=== PATIENT | female | born 1960 | race Caucasian/White ===

== ENCOUNTER 2022-06-10 17:00 | Emergency (ER) | payer BC, SELFPAY ==
--- NOTE | ~2022-06-10 | XR_ITS ---
EXAMINATION: XR FOOT, RIGHT CLINICAL INFORMATION: Pain and swelling COMPARISON: None TECHNIQUE: AP, lateral, and oblique views of the right foot. FINDINGS: Bones are normal anatomic alignment with no acute fracture or dislocation seen. Mild hallux valgus deformity and soft tissue swelling medial to the first MTP joint and lateral to the fifth MTP joint possibly representing mild bursitis. No radiopaque foreign body or soft tissue gas. No periosteal reaction. XR/XR foot RT min 3V IMPRESSION: Mild soft tissue swelling. No acute bony abnormality. No radiopaque foreign body or soft tissue gas.
--- NOTE | ~2022-06-10 | XR_ITS ---
EXAMINATION: XR ANKLE, RIGHT CLINICAL INFORMATION: Status post fall COMPARISON: None TECHNIQUE: AP, lateral, and mortise views of the right ankle. FINDINGS: The bones and soft tissues are normal. No fracture. Alignment is anatomic. Joint spaces are maintained. No joint effusion. XR/XR ankle RT min 3V IMPRESSION: Normal right ankle.
--- NOTE | 2022-06-10 17:13 | ED.LOWEXIN ---
HPI - Extremity Injury (Lower) General Chief Complaint: Extremity Injury, Lower Stated Complaint: foot inj Time Seen by Provider: 06/10/22 19:00 History of Present Illness HPI Narrative: 62yoF presenting to the ED with complaints of right ankle pain/foot pain/swelling that started few hours prior to arrival after she was hiking and her foot went into a hole and she heard a ?pop?.? She denies head injury loss of consciousness or any other injuries complaints or concerns at this time. 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) Injury: Right: ankle and foot Type of Injury: other ( her foot fell into a hole) Place: street/outdoors Severity: moderate Exacerbating factors: weight bearing, movement and palpation Context: fall Associated symptoms: snap/pop sensation Other symptoms: none Related Data Home Medications Medication Instructions Recorded Confirmed zolmitriptan 5 mg tablet 5 mg PO DAILY 06/14/22 Allergies Allergy/AdvReac Type Severity Reaction Status Date / Time casein [CASEIN] Allergy Unknown NAUSEA & Verified 06/14/22 10:28 VOMITING lactose [LACTOSE] Allergy Unknown NAUSEA & Verified 06/14/22 10:28 VOMITING simvastatin [SIMVASTATIN] Allergy Unknown JOINT PAIN Verified 06/14/22 10:28 Review of Systems Review of Systems: Constitutional : No Weight loss, No Fever, No Chills, No Night Sweats, No Fatigue, No Malaise ENT/Mouth : No Hearing loss, No Ear Pain, No Nasal Congestion, No Sinus Pain, No Hoarseness, No sore throat, No Rhinorrhea, No Swallowing Difficulty Eyes: No Eye Pain, No Swelling, No Redness, No Foreign Body, No Discharge, No Vision Changes Cardiovascular : No Chest Pain, No SOB, No Dyspnea on Exertion, No Orthopnea, No Edema, No Palpitations Respiratory : No Cough, No Sputum, No Wheezing, No Smoke Exposure, No Dyspnea Gastrointestinal : No Nausea, No Vomiting, No Diarrhea, No Constipation, No abdominal Pain, No Hematochezia, No Melena Genitourinary : no irregular bleeding, No Dysuria, No Urinary Frequency, No Hematuria, No Urinary Incontinence, No Urgency, No Flank Pain, No Urinary Flow Changes, No Hesitancy Musculoskeletal : + right ankle/foot joint pain, No Myalgias, No Joint Swelling Skin : No Skin Lesions, No rash Neuro : No Weakness, No Numbness, No Paresthesias, No Loss of Consciousness, No Dizziness, No Headache Psych : No Anxiety/Panic, No Depression, No SI/HI/AH/VH, No Social Issues, Heme/Lymph: No Bruising, No Bleeding,No Lymphadenopathy Endocrine : No Polyuria, No Polydipsia, No Temperature Intolerance Yes all other systems are reviewed and are negative [facility] Past Medical History Attestation statement: The following information was validated with the patient. Source: old records reviewed and nursing notes reviewed Physical Exam Vital Signs: Vital Signs: Last Vital Signs Temp 98.4 F 06/10/22 19:29 Pulse 58 06/10/22 19:29 Resp 16 06/10/22 19:29 BP 123/85 06/10/22 19:29 Pulse Ox 100 06/10/22 19:29 O2 Del Method 06/10/22 19:29 BMI result Body Mass Index 24.5 vital signs have been reviewed as normal and appeared to be correct. Blood pressure normal Heart rate normal. Respiration rate normal. Temperature normal. Oxygen saturation normal. Appearance: Alert. Oriented X3. No acute distress. Head: Normal external exam. Normocephalic. Atraumatic. Eyes: PERRLA. EOMI. Conjunctiva and sclera normal. Eyelids normal. ENT: Pharynx normal. Uvula midline. Moist mucous membranes. Neck: Normal inspection. Neck supple. FROM. CVS: Normal heart rate and rhythm. Respiratory: No respiratory distress. Painless inspiration. Skin: Skin warm and dry. Normal skin color. Normal skin turgor. No rashes/lesions/lacerations noted. Extremities: No lower extremity edema. patient mild tenderness palpation to the proximal aspect of the right foot /lateral aspect of the right ankle with mild soft tissue swelling no obvious ligamentous or tendon injury noted. Achilles tendon is intact. Otherwise all other extremities exhibit normal range of motion nontender. Neuro: Oriented X 3. No motor deficit. No sensory deficit. Reflexes normal. Normal steady gait. No focal neuro deficits noted. Vascular: + radial pulses/+ 2 distal pedal pulses/+2 dorsalis pedis b/l. Normal cap refill. No cyanosis noted to upper extremity nails and lower extremity toes nails. Course Course Course Narrative: MALDONADO- 17:20pm - 62yoF presenting to the ED with complaints of right ankle pain/foot pain/swelling that started few hours prior to arrival after she was hiking and her foot went into a hole and she heard a ?pop?. She denies head injury loss of consciousness or any other injuries complaints or concerns at this time. She has a normal steady gait. No obvious ligamentous or tendon injury noted. No obvious deformities although she is tender to the proximal aspect of the foot. No 5th metatarsal tenderness. Achilles tendon is intact Plan: X-ray of right ankle/foot ordered at this time patient will be going to the waiting room to be evaluated in [facility]. Reevaluation(s) Reevaluation #1: FINDINGS: The bones and soft tissues are normal. No fracture. Alignment is anatomic. Joint spaces are maintained. No joint effusion.? XR/XR ankle RT min 3V IMPRESSION: Normal right ankle FINDINGS: Bones are normal anatomic alignment with no acute fracture or dislocation seen. Mild hallux valgus deformity and soft tissue swelling medial to the first MTP joint and lateral to the fifth MTP joint possibly representing mild bursitis. No radiopaque foreign body or soft tissue gas. No periosteal reaction.? XR/XR foot RT min 3V IMPRESSION: Mild soft tissue swelling. No acute bony abnormality. No radiopaque foreign body or soft tissue gas. ? X-rays negative although patient left before giving her results she eloped Time: 17:02 Discharge Plan Discharge Clinical Impression: Foot sprain Patient Disposition: Home, Self-Care Instructions: Foot Sprain (ED) Additional Instructions: Follow up with your primary care provider and an orthopedic provider. Return to the emergency department immediately if your symptoms worsen or if you develop any dizziness, shortness of breath, difficulty breathing, chest pain, blurry vision, loss of vision, nausea, vomiting, abdominal pain, fever, chills, back pain, or any other complaints. Prescriptions: No Action zolmitriptan 5 mg tablet 5 mg PO DAILY Referrals: [facility] [Provider Group] (Call to establish and follow up with an orthopedic provider. ) Dave Park MD [Primary Care Provider] - Stand Alone Forms: Work/School Release Interventions: ED Discharge Assessment Last Done: 06/10/22 19:54 Discharge Date/Time: 06/10/22 19:54 Print Language: Luxembourgish
[2022-06-10 17:14] VITALS: BP 123/69; PULSE 84; RESP 18; TEMP 36.2; O2SAT 100; BMI 24.5
[2022-06-10 19:29] VITALS: BP 123/85; PULSE 58; RESP 16; TEMP 36.9; O2SAT 100
== END 2022-06-10 19:54 | disposition home or self-care (01) ==
PROVIDERS: Emergency Provider Emergency Medicine; PCP Family Medicine
DX: S93.601A Unspecified sprain of right foot, initial encounter (principal); W01.0XXA Fall on same level from slipping, tripping and stumbling without subsequent striking against object, initial encounter; Y93.01 Activity, walking, marching and hiking; Y92.821 Forest as the place of occurrence of the external cause; Y99.9 Unspecified external cause status; Z79.899 Other long term (current) drug therapy
CPT/HCPCS: 73610; 73630; 99283

== ENCOUNTER 2022-06-14 10:18 | Outpatient (REF) | payer BC, SELFPAY ==
--- NOTE | ~2022-06-14 | XR_ITS ---
EXAMINATION: XR FOOT, RIGHT CLINICAL INFORMATION: Right foot pain. COMPARISON: Radiographs right foot and right ankle 06/10/2022 06/10/2022 TECHNIQUE: Right foot is imaged in 3 views. FINDINGS: Normal bony mineralization. No acute or healing fracture, dislocation, destructive process. AP view foot again shows short fine linear mineralization adjacent to distal lateral calcaneus, probably visible on current exam. In the appropriate clinical setting, this could be related to a fine ligamentous pull cortical avulsion. Clinically correlate. Forefoot again shows hallux valgus and degenerative changes first MTP with medial bunion. Mild soft tissue swelling lateral foot at fifth MCP. No soft tissue mineralization. Mild degenerative changes interphalangeal joints. XR/XR foot RT min 3V IMPRESSION: -Fine linear mineralization adjacent to distal lateral calcaneus. In the appropriate clinical setting, this could be related to a fine ligamentous pull cortical avulsion. Clinically correlate. -Hallux valgus, and medial bunion and degenerative changes first MTP similar to prior study. -Otherwise, no acute or healing fracture, dislocation, or destructive process.
== END 2022-06-14 10:19 | disposition home or self-care (01) ==
LOC: HO.HOSX 10:18
PROVIDERS: PCP Family Medicine; Visit Provider Physician Assistant
DX: S93.601A Unspecified sprain of right foot, initial encounter (principal)
CPT/HCPCS: 73630

== ENCOUNTER 2023-12-16 11:59 | Outpatient (REF) | payer BC, SELFPAY ==
--- NOTE | ~2023-12-16 | XR_ITS ---
EXAMINATION: XR PELVIS CLINICAL INFORMATION: Pain COMPARISON: Hip and pelvis radiographs 05/09/2006 TECHNIQUE: AP view of the pelvis. FINDINGS: Moderate osteoarthritic of the right hip with loss of joint space and collar osteophytes and mild osteoarthritic the left hip with small osteophytes progressed from prior. Levoconvex curvature of the lumbar spine. Sacroiliac joint spaces are maintained. Large colonic stool burden. Soft tissues are unremarkable. XR/XR pelvis 1-2V IMPRESSION: 1. Moderate degenerative changes of the right hip and mild degenerative changes the left hip progressed from prior.
== END 2023-12-16 12:00 | disposition home or self-care (01) ==
LOC: HO.HOSX 11:59
PROVIDERS: Visit Provider Orthopaedic Surgery
DX: M25.559 Pain in unspecified hip (principal)
CPT/HCPCS: 72170

== ENCOUNTER 2023-12-16 13:51 | Outpatient (AMB) | payer BC, SELFPAY ==
[2023-12-16 14:03] VITALS: BMI 24.0
--- NOTE | 2023-12-16 14:03 | MHC.OFFVIS ---
Vital Signs 12/16/23 14:03 Height 5 ft 4 in Weight 140 lb BMI 24.0 Intake Visit Reasons: Newprob-RT hip pain-discuss possible replacement Intake Note: Gloria is a 63 yr old female, who presents today to discuss possible RT JOSE ARMANDO. Allergies casein [CASEIN] Allergy (Unknown, Verified 12/16/23 14:05) NAUSEA & VOMITING lactose [LACTOSE] Allergy (Unknown, Verified 12/16/23 14:05) NAUSEA & VOMITING simvastatin [SIMVASTATIN] Allergy (Unknown, Verified 12/16/23 14:05) JOINT PAIN HPI HPI Newprob-RT hip pain-discuss possible replacement: Details: This is a 63 yo F with long standing and worsening right hip pain. She describes difficulty with daily activities such as getting into and out of a car, ascending and descending stairs and ambulating. She localizes the pain to her right groin. She feels the quality of her life is diminished. Her pain localizes to the groin. She has difficulty sleeping. Nothing has helped. She limps when she walks and she cannot walk for more than 5 minutes without pain. Physical Exam Vital Signs: BMI result Body Mass Index 24.0 Const General: cooperative, healthy appearing, no acute distress, well developed and alert HEENT Head: Yes normal to inspection, Yes normocephalic and Yes atraumatic Mouth: moist mucous membranes Eyes General: appearance normal, both eyes and all related structures EOM: EOMs intact bilaterally Chest Other: no audible wheezing. Resp Other: No audible wheezing Effort & Inspection: normal respiratory effort Cardio Other: Radial pulse palpable with no rythmic abnormalities Back/Spine/Pelvis Cervical Spine: normal cervical lordosis Skin General skin exam: no rashes or lesions noted Neuro General: no focal motor deficits Extrem Other: + gait antalgia right hip with 90 deg flexion. Minimal rotation + impingement Psych Appearance: grossly normal and well kempt Mental Status: mental status grossly normal Speech and movement: Normal speech and movement present Affect: normal affect Attitude: cooperative Results Reviewed Results Reviewed: I personally reviewed relevant radiographs. Severe right hip OA Assessment & Plan Assessment & Plan (1) Osteoarthritis of right hip: Code(s): M16.11 - Unilateral primary osteoarthritis, right hip Category: Medical Plan: This is a 63 F with severe OA of the right hip. She is debilitated and suffering and I recommend right hip arthroplasty. I discussed this with her. She is healthy without any major medical problems. We discussed the diagnosis and treatment options. I discussed the risks benefits and alternatives including but not limited to the risk of pain, infection, stiffness, fracture and dislocation, need for further surgery as well as potential medical complications such as blood clots, pulmonary embolism and cardiac complications. SHe expressed understanding and we will proceed forward accordingly. Orders: Orders XR pelvis 1-2V 12/16/23 M25.559 - Pain in unspecified hip Coding Level of Care Code Est Pt Level 4 (61008) Diagnoses Osteoarthritis of right hip M16.11
== END 2023-12-16 15:20 | disposition home or self-care (01) ==
PROVIDERS: PCP Family Medicine; Visit Provider Orthopaedic Surgery
DX: M16.11 Unilateral primary osteoarthritis, right hip (principal)
CPT/HCPCS: 99214

== ENCOUNTER → 2024-03-10 12:59 | Outpatient (BNVA) | payer BC, SELFPAY | PROVIDERS: PCP Family Medicine | DX: Z01.818 Encounter for other preprocedural examination (principal) ==

== ENCOUNTER 2025-03-26 07:08 | Emergency (ER) | payer BC, SELFPAY ==
--- OUTSIDE RECORDS SUMMARY | 2024-04-01 10:00 | XMS_ITS ---
Author Organization [employer] Address [address] [facility] [address] [place] [address] Care Team Providers Care Ore Puncher Name Role Phone ALANIS WHITE, CHEPE Primary Care Provider Lizette Pelaez Unavailable [phone] REASON FOR VISIT Annual DRIP PUMPER Physical Encounters Encounter Location Date Provider Diagnosis [facility] [employer] [address] [facility] [address] [place] [address] 04/01/2024 Lizette Arroyo Plan Of Treatment Next Appt Details Provider Name:Lizette smith, 07/02/2025 10:20:00 AM, [address] [facility], [address], [place], [address], Progress Notes * LORIE GALINDOOB: (65 yo F)Acc No.[id number]:04/01/2024 PROGRESS NOTES Patient: HEMAL GALINDO Appointment Provider: Theresa Arroyo M.D. :1960 A ge:64 Y S ex:Female Date:04/01/2024 Address:[address] [place], [place] [id number] Pcp:CHEPE THAPA MD Subjective: * Chief Complaints: * 1 . Annual DRIP PUMPER Physical. * Medical History: Objective: * Vitals: Assessment: Plan: * Treatment: * Images: Billing Information: * Visit Code: * Procedure Codes: * Electronic signature of Hilario Arroyo MD on 03/26/2025 at 08:11 AM EDT Sign off status: Pending * Appointment Provider: Theresa Arroyo M.D. Date: Generated for Lonnie diamond/Jake/Chetan on: 08:11 AM EDT
--- NOTE | ~2025-03-26 | XR_ITS ---
CLINICAL HISTORY: lower back pain 3 views lumbar spine Comparison: None provided Findings: There is scoliotic curvature. No acute fractures or dislocation. Chronic appearing fractures of T11 and T12 vertebrae. There is multiple level degenerative facet change. IMPRESSION: No acute findings. This document has been electronically signed by: Amrik Delarosa MD on 03/26/2025 08:32:21
[2025-03-26 07:13] VITALS: BP 131/74; PULSE 93; RESP 14; TEMP 36.4; O2SAT 100; BMI 24.9
--- NOTE | 2025-03-26 07:53 | PC.NURSE ---
Pt ambulated to bathroom with even/steady gait
[2025-03-26 07:59] LABS: Appearance Urine Clear; Glucose Urine UA Negative (Negative); PH 7.5 (5.0-9.0); Specific Gravity - Urine <= 1.005 (1.005-1.025); UMIC TRIGGER UACC YES
--- NOTE | 2025-03-26 08:02 | ED_ITS ---
HPI - Back Pain/Injury General Chief Complaint: Back Pain/Injury Stated Complaint: L Side Low Back Pain Time Seen by Provider: 03/26/25 07:58 Source: patient and old records reviewed Mode of arrival: ambulatory Limitations: no limitations History of Present Illness ED Provider: MADDI MOTA Narrative: 65 yo female with PMH of HLD and prior back spasm she generally tries meloxicam and flexeril but it is not helping. She washed her truck on Saturday and noted some discomfort after. She was able to work this week though felt pain at times in L low back. She notes this AM it was much worse. She has no urinary symptoms, no abdominal pain, no numbness/weakness, no saddle anesthesia or b/b incontinence. She is not on blood thinners. MD elicited complaint: back pain and back injury Pertinent past history: prior back pain Onset (ago): day(s) (6) Timing: intermittent Severity: moderate Similar Symptoms Previously: Yes Quality: spasming and throbbing Location: lumbar spine Radiation: none Exacerbating factors: movement Relieving factors: immobilization Context: unknown Associated symptoms: denies other symptoms Treatments prior to arrival: NSAIDS and other medications Work related injury: Yes Related Data Home Medications ?Medication ?Instructions ?Recorded ?Confirmed cyclobenzaprine 10 mg tablet 10 mg PO BEDTIME 12/16/23 03/10/24 zolmitriptan 2.5 mg tablet (Zomig) 2.5 mg PO Q2-4H PRN 03/10/24 03/10/24 Previous Rx's ?Medication ?Instructions ?Recorded walker #1 ea 05/11/24 diazepam 2 mg tablet (Valium) 2 mg PO TID PRN muscle s pasm #14 03/26/25 tabs Allergies Allergy/AdvReac Type Severity Reaction Status Date / Time casein (CASEIN) Allergy Unknown NAUSEA & Verified 03/26/25 07:15 VOMITING lactose (LACTOSE) Allergy Unknown NAUSEA & Verified 03/26/25 07:15 VOMITING simvastatin (SIMVASTATIN) Allergy Unknown JOINT PAIN Verified 03/26/25 07:15 walnut AdvReac Intermediate Swelling Verified 03/26/25 07:15 Review of Systems Review of Systems: Constitutional : No Fever, No Chills, Gastrointestinal : No Nausea, No Vomiting, No Diarrhea, No abdominal Pain Genitourinary : No Dysuria, No Urinary Frequency, No Hematuria, No Urinary Incontinence, Musculoskeletal : positive back pain Skin : No Skin Lesions, No rash Neuro : No Weakness, No Numbness, No Paresthesias, no loss of bowel or bladder incontinence, no saddle anesthesia Yes all other systems are reviewed and are negative [facility] Past Medical History Attestation statement: The following information was validated with the patient. Source: old records reviewed Medical History Hyperlipidemia Social History Social History (Updated 03/26/25 @ 09:13 by Flaca Olivia DO) Patient Tobacco Use Status: Tobacco use Unknown Physical Exam Vital Signs: Vital Signs: Last Vital Signs Temp 97.6 F 03/26/25 08:39 Pulse 93 03/26/25 08:39 Resp 14 03/26/25 08:39 BP 131/74 03/26/25 08:39 Pulse Ox 100 03/26/25 08:39 O2 Del Method Room Air 03/26/25 08:39 BMI result Body Mass Index 24.9 Appearance: Alert. Oriented X3. No acute distress. Eyes: Pupils equal, round and reactive to light. ENT: Pharynx normal. Neck: Normal inspection. Neck supple. CVS: . Pulses normal. Respiratory: No respiratory distress. Breath sounds normal. Abdomen: Soft and nontender. Back: L lumbar above SI joint and paraspinal area ttp reproduces pain Skin: Skin warm and dry. Normal skin color. Extremities: No lower extremity edema. Neuro: Oriented X 3. No motor deficit. No sensory deficit. L 5/5 intact, SILT intact, 2+ DTR in patella and achilles Medications Administered Discontinued Medications Generic Name Dose Route Start Last Admin Trade Name Jagruti PRN Reason Stop Dose Admin Ketorolac Tromethamine 30 mg 03/26/25 08:23 03/26/25 08:36 Ketorolac Tromethamine 30 Mg/Ml Vial IM 03/26/25 08:24 30 mg ONCE ONE Administration Medical Decision Making Medical Decision Making [facility] Narrative: 65 yo female with PMH of HLD and prior back spasm now here with c/o recurrent symptoms but nontender abdomen, normal urine, NV intact, no red flags or signs of cauda equina at this time will start on valium and motrin/tylenol with instructions to return if not better or follow up with PCP Differential Diagnosis Differential Diagnoses: The differential diagnosis associated with the presentation includes back spasm, strain, pain reproduceable and no hematuria doubt renal colic Admission/Observation Consideration of admission/observation: Escalation of care including admission/observation considered no cauda equina symptoms, no other systemic symptoms, urine reassuring, start on pain control and DC Lab Data MDM Lab Attestation statement: I reviewed the patient's lab results. Labs: Lab Results 03/26/25 Range/Units 07:52 Urine Color Yellow Urine Appearance Clear Urine pH 7.5 (5.0-9.0) Ur Specific [place] <= 1.005 (1.005-1.025) Urine Protein Negative (Neg-Trace) mg/dL Urine Glucose (UA) Negative (Negative) mg/dL Urine Ketones Negative (Negative) mg/dL Urine Blood Negative (Negative) Urine Nitrite Negative (Negative) Ur Leukocyte Esterase Small (1+) H (Negative) Urine RBC 0-2 (0-2) /HPF Urine WBC 0-5 (0-5) /HPF Ur Squamous Epith Cells 3-5 (0-2) /HPF Urine Bacteria None Seen (None Seen) Hyaline Casts 0-2 (0-2) /LPF Independent Interpretation I performed an independent interpretation of an: Plain X-Ray (normal ) Radiology Impression Discussion of test interpretation with radiology: I have reviewed the radiologist's reading. External Record Review External record reviewed: Outpatient record Prescription Management I considered prescription management with: Pain Medication and Other Discharge Plan Discharge Clinical Impression: Strain of lumbar region Qualifiers: Encounter type: initial encounter Qualified Code(s): S39.012A - Strain of muscle, fascia and tendon of lower back, initial encounter Patient Disposition: Home, Self-Care Instructions: Muscle Strain (ED), Low Back Strain (ED) Additional Instructions: no motrin until 2pm take medications for relaxation of muscle as needed avoid heavy lifting of 10lbs for 2 weeks and twisting movements return for weakness, loss of control of bowel or bladder, numbness in genital area or any other concerns use heat or ice as needed follow up with your doctor if not better by saturday Findings: There is scoliotic curvature. No acute fractures or dislocation. Chronic appearing fractures of T11 and T12 vertebrae. There is multiple level degenerative facet change. IMPRESSION: No acute findings. This document has been electronically signed by: Amrik Delarosa MD on 03/26/2025 08:32:21 Prescriptions: New diazepam [Valium] 2 mg tablet 2 mg PO TID PRN (Reason: muscle spasm) Qty: 14 0RF Rx Instructions: if 2mg is not working in 45 minutes may add additional 2mg for total dose of 4mg No Action (DME) walker Misc See Rx Instructions .ROUTE .MEDSUPPLY Qty: 1 0RF Rx Instructions: Folding front wheeled walker cyclobenzaprine 10 mg tablet 10 mg PO BEDTIME zolmitriptan [Zomig] 2.5 mg tablet 2.5 mg PO Q2-4H PRN Rx Instructions: do not exceed 4 doses per 24 hrs Interventions: ED Discharge Assessment Last Done: 03/26/25 08:39 Discharge Date/Time: 03/26/25 08:40 Print Language: Martiniquais
[2025-03-26 08:08] LABS: UACC Culture Trigger YES
--- OUTSIDE RECORDS SUMMARY | 2025-03-26 08:12 | XMS_ITS | Patient Health Record ---
Author Organization [facility] Address [address] [address] Care Team Providers Care Business Segment Manager Name Role Phone CHEPE THAPA MD Primary Care Provider Lizette Pelaez Unavailable [phone] Allergies Allergen (clinical drug ingredient) Drug/Non Drug Allergy documented on EMR Reaction Allergy Type Onset Date Status simvastatin ZOCOR Myalgia Drug Allergy Activ e Substance with 8-hfdxapr-2-methylgluta ryl-coenzyme A reductase inhibitor mechanism of action (substance) Statins Unknown Drug Allergy Active Results Component Value Reference Range Notes Urinalysis Reviewed date:06/30/2024 10:38:52 AM Interpretation: Performing Lab: Notes/Report: PH 6.0 PROTEIN Neg GLUCOSE Neg BLOOD Neg Reason For Referral No Information Medications Medication SIG (Take, Route, Frequency, Duration) Notes Start Date End Date Status Protonix 40 MG 1 tablet Orally Once a day; Duration: 30 day(s) PRN Active Zomig 2.5 MG 1 tablet Orally Once a day; Duration: 1 day(s) Active Estradiol Vaginal Cream 0.01% 1 Gram Vaginally Twice a week; Duration: 90 days 01/09/2022 Active Estradiol Vaginal Cream 0.01% 1 Gram to the affected area Vaginal/Vulva Twice a week; Duration: 90 Days 06/30/2024 Active CoQ-10 100 MG as directed Orally Active Turmeric-Rere 150-25 MG as directed Orally Active Magnesium 200 MG 1 tablet with a meal Orally Once a day; Duration: 30 days Unknown Dose Active Probiotic - as directed Orally Active Immunizations Vaccine Route Administration Date Status Comme nts Influenza, live, intranasal Intramuscular 05/28/2011 [place] Social History Tobacco Use: Social History Observation Description Date Details (start date - stop date) Former Smoker NA - NA AUDIT-C (Standard) Question Answer Notes Did you have a drink contain ing alcohol in the past year? Yes How often did you have six o r more drinks on one occasion in the past year? Never (0 point) How many drinks did you have on a typical day when you were drinking in the past year? 1 or 2 drinks (0 point) How often did you have a dri nk containing alcohol in the past year? 2 to 4 times a month (2 points) Points 2 Interpretation Negative Tobacco Control (Standard) Question Answer Notes Tobacco use: Former smoker How long has it been since you last smoked? 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) Unspecified infective arthritis, site unspecified (711.90) Active confirmed Problem Uterine prolapse without vaginal wall prolapse (85377333) Uterine prolapse without mention of vaginal wall prolapse (618.1) Active confirmed Problem Postmenopausal atrophic vaginitis (55134251) Postmenopausal atrophic vaginitis (N95.2) Active confirmed Problem Family history of malignant neoplasm of breast (368973878) Family history of malignant neoplasm of breast (Z80.3) Active confirmed Problem Migraine (disorder) (71115823) Migraine, unspecified without mention of intractable migraine without mention of status migrainosus (346.90) Active confirmed Diag Problem Menopausal symptom (86204915) Symptomatic menopausal or female climacteric states (627.2) Active confirmed Major Problem Postmenopausal atrophic vaginitis (68966800) Postmenopausal atrophic vaginitis (627.3) Active confirmed Diag Problem Joint pain (99879616) Pain in joint, site unspecified (719.40) Active confirmed Diag Problem Muscle pain (32622924) Unspecified myalgia and myositis (729.1) Active confirmed Diag Vital Signs Temperature 97.2 degrees Fahrenheit 06/30/2024 Blood pressure diastolic 78 mm Hg 06/30/2024 Height 62.5 in 06/30/2024 Blood pressure systolic 118 mm Hg 06/30/2024 Weight 140 lbs 06/30/2024 BMI 25.2 kg/m2 06/30/2024 Encounters Encounter Location Date Provider Diagnosis [facility] [address] [place] [address] 06/30/2024 Lizette Arroyo Encounter for gynecological examination (general) (routine) without abnormal findings Z01.419 ; Encounter for screening mammogram for malignant neoplasm of breast Z12.31 and Postmenopausal atrophic vaginitis N95.2 Assessments Encounter Date Diagnosis (ICD Code) Assessment Notes Treatment Notes Treatment Clinical Notes Section Notes 06/30/2024 Encounter for gynecological examination (general) (routine) without abnormal findings (ICD-10 - Z01.419) NO PAP TEST, DUE IN 2025. 06/30/2024 Encounter for screening mammogram for malignant neoplasm of breast (ICD-10 - Z12.31) REGULAR MAMMOGRAMS AND SBE'S WERE RECOMMENDED. 06/30/2024 Postmenopausal atrophic vaginitis (ICD-10 - N95.2) CONTINUE ESTRADIOL CREAM. Plan Of Treatment Pending Test Test Name Order Date MAMMOGRAM, SCREENING 08/12/2014 MAMMOGRAM, SCREENING 01/09/2022 MAMMOGRAM, SCREENING 03/29/2023 MAMMOGRAM, SCREENING 06/30/2024 Urinalysis 01/09/2022 Urinalysis 09/30/2017 Urinalysis 10/09/2018 Urinalysis 11/20/2018 BONE DENSITY 03/29/2023 MM Digital Mammo Screening 03/29/2023 MM Digital Mammo Screening 06/30/2024 MM Digital Mammo Screening 12/03/2019 MM Digital Mammo Screening 12/08/2020 MM Digital Mammo Screening 01/09/2022 MM Digital Mammo Screening 11/20/2018 Next Appt Details Provider Name:Lizette Barraza [email or web address], 07/02/2025 10:20:00 AM, [address], [address], [place], [address], Insurance Providers Payer Name Payer Address Payer Phone Subscriber Number Group Number Insured Name Patient Relationship to Insured Coverage Start Date Coverage End Date [employer] [place] [address] [place] [address] [id number] [place] [employer] Spouse - patient is the spouse of the insured Medical (General) History Medical History History ICD Code Postmenopausal atrophic vaginitis N95.2 Migraine, unspecified, not intractable, without status migrainosus G43.909 Fibromyalgia M79.7 Menopausal and female climacteric states N95.1 Incomplete uterovaginal prolapse N81.2 Family history of malignant neoplasm of breast Z80.3 Epilepsy, unspecified, not intractable, with status epilepticus G40.901 Unspecified lump in the right breast, lo wer inner quadrant N63.14 Atypical squamous cells of u ndetermined significance on cytologic smear of cervix (ASC-US) R87.610 Disorder of bone density and structure, unspecified M85.9 Surgical History Surgery Date(Month/Year) Bilateral Hip Surgery Colonoscopy Right Hand Sugery Hooper Teeth Extraction RT & LT Vericose Veins Lasered Hospitalization History Reason Date(Month/Year) See Surgical Hx
--- OUTSIDE RECORDS SUMMARY | 2025-03-26 08:12 | XMS_ITS ---
Author Name [facility] Organization Unknown Encounters Encounter Type Encounter Reason Primary Diagnosis Location Date Ambulatory [facility] [place] 10/19/2022
--- OUTSIDE RECORDS SUMMARY | 2025-03-26 08:12 | XMS_ITS | Encounter Summary ---
Author Organization [facility] Address [address] [place] [address] Phone Care Team Providers Care Value Stream Leader Name Role Phone Dave Park MD Primary Care Provider + Encounter Details Date Type Department Care Team (Late st Contact Info) Description 03/14/2020 Procedure [facility] [address] [place] [address] Social History Tobacco Use Types Packs/Day Years Used Date Smoking Tobacco: Former Smokeless Tobacco: Former Alcohol Use Standard Drinks/Week Comments Yes 2 (1 standard drink = 0.6 oz pur e alcohol) occasional Comments Unknown Sex and Gender Information Value Date Recorded Sex Assigned at Female 02/05/2019 4:23 PM EDT Legal Sex Female 5:49 PM EST Gender Identity Female 02/05/2019 4:23 PM EDT Sexual Orientation Choose not to disclose 2019 2:19 PM EDT documented as of this encounter Plan of Treatment Not on file documented as of this encounter Visit Diagnoses Not on filedocumented in this encounter Care Teams Value Stream Leader Relationship Specialty Start Date End Date Dave Park MD [address] [place] [address] PCP - General Family Medicine 10/31/18 documented as of this encounter Additional Source Comments The information contained in this document represents components of the legal health record. It is not the complete legal health record.[facility]
--- OUTSIDE RECORDS SUMMARY | 2025-03-26 08:12 | XMS_ITS | Clinical Summary ---
Author Organization [facility] [address] [facility] Address [address] [place] [address] Phone Care Team Providers Care Recruiter Coordinator Name Role Phone Dave Park MD Primary Care Provider [phone]- [phone] Surgical History Surgery Date Site/Laterality Comments HIP SURGERY Right PROCEDURE:HIP SURGERY HIP SURGERY Left PROCEDURE:HIP SURGERY Family History Medical History Relation Name Comments Clotting disorder Brother Osteoarthritis Brother Hyperlipidemia Father Osteoarthritis Father Scoliosis Father Cancer Mother Clotting disorder Mother Diabetes Mother Heart disease Mother Hyperlipidemia Mother Hypertension Mother Osteoarthritis Mother Rheumatologic disease Mother Relation Name Status Comments Brother Father Mother Social History Tobacco Use Types Packs/Day Years Used Date Smoking Tobacco: Former Smokeless Tobacco: Never Alcohol Use Standard Drinks/Week Comments Yes 0 (1 standard drink = 0.6 oz pur e alcohol) Comments Unknown Sex and Gender Information Value Date Recorded Sex Assigned at Not on file Legal Sex Female 2:54 PM EST Gender Identity Not on file Sexual Orientation Not on file Obstetrics History Last Filed Vital Signs Vital Sign Reading Time Taken Comments Blood Pressure - - Pulse - - Temperature - - Respiratory Rate - - Oxygen Saturation - - Inhaled Oxygen Concentration - - Weight 61.7 kg (136 lb) 09/18/2021 2:28 PM EDT Height 162.6 cm (5' 4 ) 09/18/2021 2:28 PM EDT Body Mass Index 23.34 09/18/2021 2:28 PM EDT Plan of Treatment Health Maintenance Due Date Last Done Comments Breast Cancer Screening 1961 Colorectal Cancer Screening: Colonoscopy 1961 Cervical Cancer Screening: Pap Smear 1982 Pneumococcal Vaccine: 50+ Years (1 of 1 - PCV) 2011 Cholesterol Screening (Lipid Panel) 05/23/2022 HIV Screening 05/23/2022 Hepatitis C Screening 05/23/2022 Social Influencers of Health Screening 05/23/2022 DTaP,Tdap,and Td Vaccines (2 - Td or Tdap) 03/22/2024 03/22/2014 Depression Screening 06/24/2024 COVID-19 Vaccine (4 - season) 2025 05/21/2021, 09/07/2020, 08/10/2020 Influenza Vaccine (#1) 2025 , 04/17/2022, 04/05/2021, Additional history exists RSV Immunization Adult Patients (1 - 1-dose 75+ series) 02/22/2036 Zoster Vaccines Completed 01/05/2022, 08/11/2021 HIB Vaccines Aged Out No longer eligi ble based on patient's age to complete this topic HPV Vaccines Aged Out No longer eligi ble based on patient's age to complete this topic Hepatitis A Vaccines Aged Out No long er eligible based on patient's age to complete this topic Hepatitis B Vaccines Aged Out No long er eligible based on patient's age to complete this topic IPV Vaccines Aged Out No longer eligi ble based on patient's age to complete this topic MMR Vaccines Aged Out No longer eligi ble based on patient's age to complete this topic Meningococcal ACWY Vaccine Aged Out N o longer eligible based on patient's age to complete this topic Meningococcal B Vaccine Aged Out No l onger eligible based on patient's age to complete this topic RSV Immunization Patients Under 20 months Aged Out No longer eligible based on patient's age to complete this topic Varicella Vaccines Aged Out No longer eligible based on patient's age to complete this topic Insurance [facility] Care Teams Recruiter Coordinator Relationship Specialty Start Date End Date Dave Park MD [facility] [address] [place] [address] PCP - General Family Medicine 10/07/18
--- OUTSIDE RECORDS SUMMARY | 2025-03-26 08:13 | XMS_ITS | Clinical Summary ---
Author Organization [facility] Address [address] [place] [address] Phone Care Team Providers Care Hog Driver Name Role Phone Dave Park MD Primary Care Provider + Allergies Active Allergy Reactions Criticality Noted Date Comments Apricot Other (See Comments) High 08/21/2010 THROAT TIGHT AND DRY Pineapple 03/09/2020 Tramadol Other (See Comments) High 08/21/2010 EXTREME NERVOUSNESS AND HYPER Medications ibuprofen (ADVIL,MOTRIN) 800 MG tablet Take 800 mg by mouth 3 (three) times a day as needed for pain (specific location in comments). Dose: 800 MG; Form: Take 1 TABLET; Route: PO; Frequency: TID; Directions: Not available; Details: Dispense: 90 Tablet(s); Status: Active; Source: GLENN FOLEY,N.PGiovanny; Date: 12/24/2012 3 Active ZOLMitriptan (ZOMIG) 5 MG tablet Take 5 mg by mouth as needed for migraine. Active pantoprazole (PROTONIX) 40 MG tablet Take 40 mg by mouth daily as needed (For Reflux). Active multivit-min/fe rrous fumarate (MULTI VITAMIN ORAL) Take by mouth daily. Active cholecalciferol (VITAMIN D3) 2,000 unit capsule Take by mouth daily. Active turmeric root extract 500 mg Cap Take 1,000 mg by mouth daily. Active estradiol (ESTRACE) 0.01 % (0.1 mg/gram) vaginal cream Place 2 g vaginally 2 (two) times a week. Active acetaminophen (TYLENOL) 500 MG tablet Take 500 mg by mouth every 6 (six) hours as needed for pain (specific location in comments). Active Active Problems Problem Noted Date Diagnosed Date Right hip pain Social History Tobacco Use Types Packs/Day Years Used Date Smoking Tobacco: Former Smokeless Tobacco: Former Alcohol Use Standard Drinks/Week Comments Yes 2 (1 standard drink = 0.6 oz pur e alcohol) occasional Education Answer Date Recorded Are you interested in more education? Not on lizett e 10/27/2022 Are you concerned about learning? Not on file 10/27/2022 No 10/27/2022 No 10/27/2022 Digital Access Answer Date Recorded No 11/18/2022 No 11/18/2022 No 11/18/2022 Reliable internet access at home? Not on file 11/18/2022 Device with a working camera? Not on file Comments Unknown Sex and Gender Information Value Date Recorded Sex Assigned at Female 02/05/2019 4:23 PM EDT Legal Sex Female 5:49 PM EST Gender Identity Female 02/05/2019 4:23 PM EDT Sexual Orientation Choose not to disclose 2019 2:19 PM EDT Last Filed Vital Signs Vital Sign Reading Time Taken Comments Blood Pressure 103/68 11/13/2020 10:21 AM EDT Pulse 88 11/13/2020 10:21 AM EDT Temperature 37.5 C (99.5 F) 11/13/2020 10:21 AM EDT Respiratory Rate - - Oxygen Saturation 97% 11/13/2020 10:21 AM EDT Inhaled Oxygen Concentration - - Weight 60.8 kg (134 lb) 11/13/2020 10:21 AM EDT Height 160 cm (5' 3 ) 11/13/2020 10:21 AM EDT Body Mass Index 23.74 11/13/2020 10:21 AM EDT Plan of Treatment Health Maintenance Due Date Last Done Comments Adult Td,Tdap Booster 1961 LIPID PANEL 1961 DEPRESSION SCREENING 1973 SMOKING Hx and SMOKELESS TOBACCO SCREENING 1974 HEPATITIS C SCREENING 1979 HIV ONE-TIME SCREENING (18-6 5 YEARS) 1979 PAP SMEAR 1982 MAMMOGRAM 2001 COLOGUARD 2006 COLONOSCOPY 2006 COLORECTAL CANCER SCREENING 2006 FIT TEST 2006 FOBT 2006 SIGMOIDOSCOPY 2006 VIRTUAL COLONOSCOPY 2006 PNEUMOCOCCAL VACCINES (50+ years) (1 of 1 - PCV) 2011 ZOSTER VACCINES (1 of 2) 2011 INFLUENZA VACCINE (#1) 2025 04/09/2019 COVID-19 VACCINE (3 - 2024-2 6 season) 2025 09/07/2020, 08/10/2020 RSV VACCINE (1 - 1-dose 75+ series) 02/22/2036 HEPATITIS A VACCINES Aged Out No long er eligible based on patient's age to complete this topic HIB VACCINES Aged Out No longer eligi ble based on patient's age to complete this topic MENINGOCOCCAL VACCINES (ACWY) Aged Out No longer eligible based on patient's age to complete this topic MENINGOCOCCAL VACCINES (B) Aged Out N o longer eligible based on patient's age to complete this topic Medical Devices Not on file Insurance [facility] [address] [place] [address] [place] [address] [place] [address] [place] [address] Care Teams Hog Driver Relationship Specialty Start Date End Date Dave Park MD [address] [place] [address] PCP - General Family Medicine 10/31/18 Additional Source Comments The information contained in this document represents components of the legal health record. It is not the complete legal health record.[facility]
--- OUTSIDE RECORDS SUMMARY | 2025-03-26 08:13 | XMS_ITS | Clinical Summary ---
Author Organization [facility] Address [address] [place] [address] Care Team Providers Care Code Official Name Role Phone Dave Park MD Primary Care Provider [phone]- [phone] Allergies Active Allergy Reactions Criticality Noted Date Comments Apricot Other (See Comments) High 08/21/2010 THROAT TIGHT AND DRY Pineapple 03/09/2020 Tramadol Other (See Comments) High 08/21/2010 EXTREME NERVOUSNESS AND HYPER Medications Medication Sig Dispensed Refills Start Date End Date Status acetaminophen (TYLENOL EXTRA STRENGTH) 500 MG tablet Take 500 mg by mouth every 6 (six) hours as needed. 0 Active ibuprofen 800 MG tablet Take 800 mg by mouth 3 (three) times a day as needed. 0 12/24/2012 Active ZOLMitriptan (ZOMIG) 5 MG tablet Take 5 mg by mouth. 0 Active Family History Medical History Relation Name Comments [...] drink = 0.6 oz pur e alcohol) Sex and Gender Information Value Date Recorded Sex Assigned at Female 10/07/2018 10:40 AM EDT Gender Identity Not on file Sexual Orientation Not on file Job Start Date Occupation Industry Not on file Not on file Not on file Last Filed Vital Signs Vital Sign Reading [...] Health Maintenance Due Date Last Done Comments Hepatitis C Screening 1961 Depression Screening 1973 Preventative Health Evaluation 1979 DTap / Tdap / Td (1 - Tdap) 02/22/1980 Cervical Cancer Screening (Pap Smear) 1982 Colon Cancer Screening (Colonoscopy) 2006 Breast Cancer Screening (Mammogram) 2011 Shingrix-Zoster Vaccine (1 of 2) 2011 COVID-19 Vaccine (2 - season) 2025 08/10/2020 Influenza Vaccine (#1) 2025 , 05/02/2018, 04/29/2017, Additional history exists Pneumococcal Vaccine (1 of 1 - PCV) 2026 RSV Adult > 60+ Yrs or (1 - 1-dose 75+ series) 02/22/2036 Hepatitis B Vaccines Aged Out No long er eligible based on patient's age to complete this topic Pneumococcal Vaccine Aged Out No long er eligible based on patient's age to complete this topic RSV Ped < 20 months Aged Out No longe r eligible based on patient's age to complete this topic Care Teams Code Official Relationship Specialty Start Date End Date Dave Park MD [address] [place] [address] PCP - General Family Medicine 10/07/18
[2025-03-26 08:39] VITALS: BP 131/74; PULSE 93; RESP 14; TEMP 36.4; O2SAT 100
== END 2025-03-26 08:40 | disposition home or self-care (01) ==
PROVIDERS: Emergency Provider Emergency Medicine; PCP Family Medicine
DX: S39.012A Strain of muscle, fascia and tendon of lower back, initial encounter (principal); E78.5 Hyperlipidemia, unspecified; M62.830 Muscle spasm of back; X58.XXXA Exposure to other specified factors, initial encounter; Y93.9 Activity, unspecified; Y92.9 Unspecified place or not applicable; Y99.9 Unspecified external cause status
CPT/HCPCS: 72100; 81001; 87086; 96372; 99284; J1885

== ENCOUNTER → 2025-03-26 07:40 | Outpatient (BNV) | payer BC, SELFPAY | PROVIDERS: Emergency Provider Emergency Medicine; PCP Family Medicine; Visit Provider Specialist | DX: M54.50 Low back pain, unspecified (principal) | CPT/HCPCS: 72100 ==

== ENCOUNTER 2025-04-13 13:19 | Outpatient (AMB) | payer BC, SELFPAY ==
[2025-04-13 13:21] VITALS: BMI 24.9
--- NOTE | 2025-04-13 13:21 | MHC.OFFVIS ---
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 Pt still has Right LE rope like VV. Left LE is okay, starting to get some small VV. Pt states that she has LE weakness. Wears compression and elevates when possible. 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 The patient has a history of varicose veins, initially treated in 2013 with laser ablation and phlebectomy by Dr. Gaviria, which was effective at the time. In 2023, she experienced a significant recurrence of varicose veins, with visible clusters and associated symptoms of leg fatigue and swelling, particularly in the right leg. She describes episodes of phlebitis characterized by warmth, redness, and swelling in the right leg, which were not previously experienced. She was advised to use warm compresses and nonsteroidal anti-inflammatory drugs for symptom management. 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 She reports using knee-high compression stockings and elevating her legs to alleviate symptoms. It has been affecting there daily activities including working in housekeeping business. It is noted more so in right leg. Patient ablation microphlebectomy by Dr. Gaviria in 2013 at [facility] Patient denies any history of DVT/ PE. Patient has had recent bouts of phlebitis in particular the right calf. Trial of compression includes - [id number] They now present for vascular evaluation regarding their varicose veins. FORMERLY [facility], [facility]1983 Medical History Hyperlipidemia Social History Patient Tobacco Use Status: Tobacco use Unknown Review of Systems Const Reports as per HPI ENT Reports no additional complaints Card Denies chest pain, Denies chest pain at rest and Denies chest pain with activity Resp Denies chest congestion and Denies cough GI Reports no additional complaints Musc Details: pain over varicosities, aching of lower extremities, swelling, cramping, heaviness and tiredness, itching Denies abnormal gait Skin/Breast Reports pruritus and Denies wounds Neuro Reports no additional complaints and Denies abnormal gait Psych Denies no additional complaints Physical Exam Vital Signs: BMI result Body Mass Index 24.9 Const General: cooperative, healthy appearing and comfortable Orientation/consciousness: oriented to person, oriented to place and oriented to time Neck Carotids: no bruits Chest Chest palpation & inspection: normal inspection of the chest and normal palpation of entire chest wall Resp Effort & Inspection: normal respiratory effort and able to speak in complete sentences Cardio Rate: regular rate Heart sounds: S1 normal heart sound present and S2 normal heart sound present Peripheral pulses: Peripheral pulses 2+ throughout GI Inspection: Yes normal to inspection Skin Other: +2 edema, large rope-like varicosities greater than 4 mm right calf CEAP Classification C4 - skin color changes Ep - Etiology Primary As - superficial veins P - reflux General skin exam: dry skin Neuro General: oriented to person, oriented to place and oriented to time Extrem Right lower extremity: full ROM, normal capillary refill and edema Left lower extremity: full ROM, normal capillary refill and edema Psych Mental Status: mental status grossly normal Assessment & Plan Assessment & Plan (1) Varicose veins of right lower extremity with inflammation: Code(s): I83.11 - Varicose veins of right lower extremity with inflammation Category: Medical Plan: In short, the patient has evidence of venous insufficiency. I have discussed the pathophysiology with the patient. In addition I have provided informational material regarding venous disease to the patient. We have discussed conservative measures including compression, elevation, and exercise. I have also provided a handout regarding appropriate use of compression stockings and where to purchase good compression stockings as well. I have taken the liberty of ordering venous insufficiency testing with the patient. They will follow up with me after testing. The patient had an opportunity to ask questions regarding the treatment plan. All questions were answered. Imaging studies, laboratory studies and physical exam results were discussed and reviewed in detail. No major barriers to understanding were identified. The patient expressed understanding and agreement with the above treatment plan. The patient is aware they should contact our office by phone for worsening of the current condition or the appearance of new symptoms. Thank you for allowing me to participate in the vascular care of this patient. If you have any questions or concerns regarding the treatment for the above condition please do not hesitate to contact me. The office telephone contact is [phone]. This note is constructed using voice recognition software. While every effort has been made to ensure accuracy, brim stitcher errors may have been included. Thank you for allowing me to participate in the care of your patient. Yours sincerely, Cortes Williamson MD, FACS, R.P.V.I. Orders: Orders US venous duplex LE BI Today I83.11 - Varicose veins of right lower extremity with inflammation Coding Level of Care Code New Pt Level 4 (34693) Diagnoses Varicose veins of right lower extremity with inflammation I83.11
--- OUTSIDE RECORDS SUMMARY | 2025-04-13 17:23 | XMS_ITS | Data Portability ---
Author Organization [place] [facility] Laura Schulte AONE [place] Address [address] [place] [address] Care Team Providers Care Ankle Patch Molder Name Role Phone CHEPE THAPA Primary Care Provider Assessment Encounter Date Assessment Date Assessment LastModified by Organization Details LastModified Time 09/17/2022 09/17/2022 Recurrent right anterior shoulder pain consistent with biceps tendinitis. She had an excellent sustained response to a prior cortisone injection. She has now had 2 injections. Discussed treatment options moving forward. Discussed the risks/benefits of a potential third cortisone injection, discussed risk potential tendon compromise and rupture given repeated cortisone. Alternative would be surgical intervention with an arthroscopy, debridement, subpectoral tenodesis. I went over the nature of the surgery with her as well as the anticipated recovery time. She is going to try some additional conservative measures at home with activity modification, icing per the protocol. If in the next few weeks things are not heading in the right direction she will consider coming in for a biceps injection. Thinking about surgery, she would want to defer anything until at least the fall. Greater than 30 minutes spent today on the encounter - including time spent on education and counseling, review of data, and documentation of the visit. PRIOR: Definite improvement following the previous biceps injection back in February. She has now had recurrent symptoms. She is considering surgery but would like to delay until sometime in the mid-to-late summer. She is interested in trying another biceps tendon injection. This was performed today without difficulty. Postinjection instructions reviewed. Her MRI was back in November 2020. If she were to undergo surgery in the summer I would not anticipate needing to repeat an MRI unless her symptom complex substantially changes. PRIOR: Persistent right shoulder pain after a traumatic incident. She has rotator cuff tendinopathy with some areas of partial tearing, I do not appreciate an area of full-thickness tearing however. Clinically she has significant irritation along the long head of the biceps and based on the MRI there may be a split tear with some surrounding synovitis. Reviewed treatment options at length. At this point she has failed a reasonable trial of rest, physical therapy, and a subacromial injection. I offered her an ultrasound-guide d long head biceps sheath cortisone injection for both diagnostic and therapeutic purposes. She accepted. She tolerated the injection well. Postinjection instructions reviewed. She will call back in 10 to 14 days to report the results. If good improvement we will observe. If equivocal improvement or no improvement we may need to move forward with a right shoulder arthroscopy, rotator cuff debridement versus repair, subacromial decompression/ac romioplasty, open subpectoral biceps tenodesis. I reviewed the nature of the surgery with her as well as the anticipated recovery time. Hopefully the injection will be beneficial and we can avoid surgery. Not available 09/17/2022 14:42:23 Plan of Treatment Reminders Order Date Submit Date Provider Last Modified By Organization Details Last Modified Time Details Appointments None record ed. Lab None record ed. Referral None record ed. Procedures None record ed. Surgeries None record ed. Imaging XR, should er, 2 or more view 023 09/18/19 23 [email or web address] [facility], [address], [address], [place], [address], 14:44:17 Medication Orders None record ed. Patient TargetsNo targets recorded. Patient Instructions Encounter Date Encounter Id Patient Instructions Last Modified By Organization Details Last Modified Time 09/17/2022 [id number] views of the right shoulder were obtained on 09/17/2022 in the [place] office. Glenohumeral joint spaces well-maintained. Acromiohumeral interval intact. No obvious soft tissue calcifications. Acromial morphology is difficult to assess given patient positioning. Findings: Well-maintained right shoulder glenohumeral joint space. No acute fracture appreciated. Interpreted by Jimmy Houston MD Not available 09/17/2022 14:30:07 Reason for Referral None Reported. Procedures Surgical History Date Name Laterality Status Provider Name and Address Organization Details Recorded Time hysterectomy completed [facility], 04/05/2025 12:06:34 procedure on intestine completed [facility], 04/05/2025 12:06:54 total thyroidectomy completed [facility], 04/05/2025 12:07:04 repair of musculotendinous cuff of shoulder completed [facility], 04/05/2025 12:07:15 Imaging Results None recorded. Procedure Notes None recorded. Medical Equipment None Reported. Allergies Allergen ID Allergen Name Allergen Category Reaction Reaction Severity Criticality Documentation Date Start Date Code Code System Note Provider Name and Address Organization Details Recorded Time 132076 pineapple allergeni c extract food,medi cation Not available Not available Not available 03/16/20252019 73045 5 RxNorm Not Available [facility] 5 01:31:09 215235 Prunus armeniaca seed extract medicatio n Not available Not available Not available 03/16/20252010 94884 58 RxNorm React ion: Other (See Comme nts), sever ity: Unkno wn;TH ROAT TIGHT AND DRY Not Available [facility] 5 01:31:09 943 tramadol medicatio n Not available Not available Not available 09/17/2022 21848 [facility] 14:19:48 Medications Name Sig Start Date Stop Date Status Note LastModified by Organization Details LastModified Time ibuprofen 800 mg tablet Take 800 mg by mouth 3 (three ) times a day as needed . 2012 active Not Available Not Available Not Avai lable meloxicam 15 mg tablet 09/17 completed Not Available Not Available Not Available terconazole 0.8 % vaginal cream 09/17 completed Not Available Not Available Not Available acetaminophen 500 mg tablet Take 500 mg by mouth every 6 (six) hours as needed . active Not Available Not Available No t Available zolmitriptan 5 mg tablet Take 5 mg by mouth. active Not Available Not Available No t Available erythromycin 5 mg/gram (0.5 %) eye ointment 09/17 completed Not Available Not Available Not Available methylpredniso lone acetate 40 mg/mL suspension for injection 03/20 completed Not Available Not Available Not Available tobramycin 0.3 %-dexamethason e 0.1 % eye drops,suspensi on 09/17 completed Not Available Not Available Not Available alprazolam active Not Available Not Av ailable Not Available Synthroid active Not Available Not Tori ilable Not Available metoprolol succinate active Not Available Not Available No t Available pantoprazole active Not Available Not Available Not Available rosuvastatin active Not Available Not Available Not Available PreserVision AREDS active Not Available Not Available Not Available lidocaine (PF) 10 mg/mL (1 %) injection solution 03/20 completed Not Available Not Available Not Available Prolia active Not Available Not Availa ble Not Available Procto-Med HC 2.5 % topical cream perineal applicator 09/17 completed Not Available Not Available Not Available Vitals Date Recorded Body height Body mass index (BMI) Body weight Provider Name and Address Organization Details Last Updated DateTime 09/17/2022 162.56 cm 23.9 kg/m2 22636.34 g Danielle Perdue [place] - [facility] 09/17/2022 14:20:25 Date Recorded Body height Body mass index (BMI) Body weight Provider Name and Address Organization Details Last Updated DateTime 04/05/2025 160.02 cm 26.6 kg/m2 49391.86 g [email or web address] - [facility] 04/05/2025 12:05:03 Social History Question Answer Notes LastModified by Organizat ion Details LastModified Time Tobacco Smoking Status Former Smoker Not Available [facility] 03/15/2025 23:40:42 How Much Tobacco Do You Smoke? No [email or web address] Information not available 04/05/2025 Sex: Unknown Functional Status Question Answer Note LastModified by Organizat ion Details LastModified Time Do you use any illicit or recreational drugs? No [email or web address] Information not available 04/05/2025 What is your level of alcohol consumption? None [email or web address] Information not available 04/05/2025 Mental Status None recorded. Family History Relationship Description Onset Age of this Age Resolved Age Notes LastModified by Organization Details LastModified Time Mother Heart disease [email or web address] Not available 03/24 12:05:25 Mother Hypercholest erolemia [email or web address] Not available 03/24 12:05:38 Mother Hypertensive disorder Not available 03/24 12:05:53 Sister Heart disease [email or web address] Not available 03/24 12:05:25 Sister Hypertensive disorder [email or web address] Not available 03/24 12:05:53 Medical History Condition Response Coronary Artery Disease N Gout N Hyperthyroidism N MRSA N Blood Transfusion N Emphysema N Hypothyroidism N Depression N COPD N Pacemaker N Vascular Disease N Gastrointestinal Disease N Anxiety Disorder N Autoimmune disease N Arthritis N Cancer N Stroke N High Cholesterol N Neurologic Disorder N Liver Disease N Organ Transplant N Rheumatoid Arthritis N Arrhythmia N Fibromyalgia N Kidney Disease N Allergies/Hayfever N Adverse Reaction to Anesthesia N Thyroid Problems N Anemia N Brain Injury N Heart Attack ([place]) N Osteopenia Y Diabetes N Bleeding Disorder N Seizures/Epilepsy N AIDS/HIV N Congestive Heart Failure (CHF) N Asthma N Amputation N Reflux/GERD Y Sleep Apnea N Hepatitis N Aneurysm N Heart Disease N Pulmonary Embolism N Hypertension Y Osteoporosis Y Gynecological HistoryNo gynecological history recorded. Obstetrics History GPAL:G 0 P 0 0 0 0 Past Encounters Encounter ID Performer Location Encounter Start Date Encounter Closed Date Diagnosis/Indication Diagnosis SNOMED-CT Code Diagnosis ICD10 Code Diagnosis IMO Codes Diagnosis Note [id number] MD SARA Antony [address] [address] 09/17/2022 14:09:08 09/17/2022 14:38:42 Pain of right shoulder joint 6007890208 3564645 M25.511 Tendinitis of long head of biceps brachii of right shoulder 388027197 M75.21 Health Concerns Section Related Observation LastModified by Organization Detai ls LastModified Time None Recorded Concern Status LastModified by Organization Details LastModified Time None Recorded Advance Directives Directive None Recorded Payers Insurance Date Sequence Insurance Name Policy Number Policy Abraham Covered Member ID Abraham Member ID Guarantor Name 09/17/2022 1 [place]: [facility] [id number] Serene Winchester [id number] Gloria Herron Notes Date Note Type Note Provider Name and Address Organization Details Recorded Time 09/17/2022 text/html ROS as noted in the HPI She was last seen on 09/18/2021. She had a biceps injection. She states she had substantial improvement and it was very good up until May. She has had a recent flareup. Pain feels similar as it did before. Predominantly anterior. Worse with activity. She rates the pain as a 6/10. She denies instability. At times the shoulder can feel a bit stiff with certain movements. She is wondering about another injection. PRIOR:Gloria Herron is a 61 y.o. female here today for evaluation of right shoulder pain. She reports definite improvement following the biceps injection back in February. The symptoms have recurred sometime in June. She currently rates her pain as a 5/10 during the day and an 8/10 at nighttime. She still feels some nagging pain anteriorly. At this point she is fairly convinced that she is going to come to need surgery, but wants to delay until the summer. She is interested in trying another injection. PRIOR:She slipped on some ice on stairs on 06/21/2020. She wrapped her arm around the rail. She had immediate right shoulder pain. After the incident she could not reach around her chest because of pain. She was subsequently seen at [facility] by Dr. Doherty in August 2020. She ended up having an MRI in November. She underwent 12 sessions of physical therapy. She then had a cortisone injection which was helpful. Her pain is predominantly anterior. She overall feels that she has regained range of motion. She rates her pain at its worst between a 6 to a 7 on a 10 point scale. She has some radiation into the bicipital region. 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 She describes herself as healthy. She quit smoking in 1980. Jimmy Houston MD [address] [place] [address], [id number], [place] [facility] 09/17/2022 15:03:31 OBGyn Episode No OBEpisode recorded.
== END 2025-04-13 14:41 | disposition home or self-care (01) ==
LOC: HO.HVS 13:19
PROVIDERS: PCP Family Medicine; Visit Provider Surgery Vascular Surgery
DX: I83.11 Varicose veins of right lower extremity with inflammation (principal)
CPT/HCPCS: 99204

== ENCOUNTER 2025-05-07 08:23 | Outpatient (REF) | payer BC, SELFPAY ==
--- OUTSIDE RECORDS SUMMARY | 2024-04-01 09:00 | XMS_ITS ---
Author Organization [employer] Address [address] [place] [address] Care Team Providers Care Washer Operator Name Role Phone ALANIS WHITE, CHEPE Primary Care Provider Lizette Pelaez Unavailable [phone] REASON FOR VISIT Annual OPERATIONS ASST Physical Encounters Encounter Location Date Provider Diagnosis [facility] [address] [place] [address] 04/01/2024 Lizette Arroyo Plan Of Treatment Next Appt Details Provider Name:Lizette smith, 07/02/2025 10:20:00 AM, [address] [facility], [address], [place], [address], Progress Notes * LORIE GALINDOOB: (65 yo F)Acc No.[id number]:04/01/2024 PROGRESS NOTES Patient: HEMAL GALINDO Appointment Provider: Theresa Arroyo M.D. :1960 A ge:64 Y S ex:Female Date:04/01/2024 Address:[address] [place], [place] [id number] Pcp:CHEPE THAPA MD Subjective: * Chief Complaints: * 1 . Annual OPERATIONS ASST Physical. * Medical History: Objective: * Vitals: Assessment: Plan: * Treatment: * Images: Billing Information: * Visit Code: * Procedure Codes: * Electronic signature of Hilario Arroyo MD on 05/07/2025 at 08:35 AM EST Sign off status: Pending * Appointment Provider: Theresa Arroyo M.D. Date: Generated for Lonnie diamond/Jake/Chetan on: 07/07/2024 08:35 AM EST
--- NOTE | ~2025-05-07 | US_ITS ---
EXAMINATION: US LOWER EXTREMITY VENOUS (REFLUX EXAM), BILATERAL CLINICAL INFORMATION: I 83.11 COMPARISON: None. TECHNIQUE: Color flow triplex imaging and compression Doppler was performed to evaluate both the deep and the superficial systems bilaterally. To evaluate the superficial system, the examination was performed in the upright position. Color-flow Doppler ultrasound and compression ultrasound were utilized. In addition, maneuvers were utilized to demonstrate reflux. FINDINGS: 1. DEEP VENOUS ULTRASOUND OF THE RIGHT LOWER EXTREMITY: Common Femoral Vein: Compressible, normal respiratory variation and augmented flow. Femoral Vein: Compressible, normal color flow and augmentation. Popliteal Vein: Compressible, normal augmentation. Deep Reflux: There is no evidence of reflux in the deep system in either the common femoral vein, superficial femoral or the popliteal vein. There is no evidence of a Berger's cyst. 2. SUPERFICIAL ULTRASOUND WITH DOPPLER OF RIGHT LOWER EXTREMITY: GREAT SAPHENOUS VEIN: Saphenofemoral Junction: 0.8 cm; Reflux: 0 ms Proximal Thigh: 0.6 cm; Reflux: 2168 ms Mid Thigh: Prior surgery. Distal Thigh: Prior surgery At Knee: Prior surgery. Proximal Calf: 0.1 cm; Reflux: 0 ms Mid Calf: 0.1 cm; Reflux: 0 ms Distal Calf: 0.1 cm; Reflux: 0 ms DUPLICATED MEDIAL GREAT SAPHENOUS VEIN: Diameter: None imaged Reflux: NA DUPLICATED LATERAL GREAT SAPHENOUS VEIN: Diameter: 0.2 cm. Reflux: NA SMALL SAPHENOUS VEIN: Saphenopopliteal Junction: 0.1 cm; Reflux: 0 ms Proximal: 0.1 cm; Reflux: 0 ms Distal: 0.1 cm; Reflux: 0 ms VEIN OF GIACOMINI: Size: NA Reflux: NA PERFORATORS: Location: [place]. Size: 0.1 cm. Reflux: NA VARICOSITIES: Location: None imaged. Size: NA Reflux: NA 3. DEEP VENOUS ULTRASOUND OF THE LEFT LOWER EXTREMITY: Common Femoral Vein: Compressible, normal respiratory variation and augmented flow. Femoral Vein: Compressible, normal color flow and augmentation. Popliteal Vein: Compressible, normal augmentation. Deep Reflux: 1984 ms in the popliteal vein. There is no evidence of a Berger's cyst. 4. SUPERFICIAL ULTRASOUND WITH DOPPLER OF LEFT LOWER EXTREMITY: GREAT SAPHENOUS VEIN: Saphenofemoral Junction: 0.7 cm; Reflux: 0 ms Proximal Thigh: 0.3 cm; Reflux: 548 ms Mid Thigh: 0.2 cm; Reflux: 0 ms Distal Thigh: 0.2 cm; Reflux: 0 ms At Knee: 0.1 cm; Reflux: 0 ms Proximal Calf: 0.1 cm; Reflux: 0 ms Mid Calf: 0.1 cm; Reflux: 0 ms Distal Calf: 0.1 cm; Reflux: 0 ms DUPLICATED MEDIAL GREAT SAPHENOUS VEIN: Diameter: None imaged Reflux: NA DUPLICATED LATERAL GREAT SAPHENOUS VEIN: Diameter: 0.2 cm. Reflux: NA SMALL SAPHENOUS VEIN: Saphenopopliteal Junction: 0.3 cm; Reflux: 0 ms Proximal: 0.2 cm; Reflux: 0 ms Distal: 0.1 cm; Reflux: 0 ms VEIN OF GIACOMINI: Size: NA Reflux: NA PERFORATORS: Location: Mid thigh Size: 0.2 cm Reflux: NA VARICOSITIES: Location: None Imaged Size: NA Reflux: NA Probable small 1.3 cm lipoma's in the soft tissues of the left lower extremity at the knee level. US/US venous duplex LE BI IMPRESSION: Right: Venous insufficiency, great saphenous vein in the proximal thigh. Perforators without reflux. Left: Venous insufficiency, great saphenous vein at proximal thigh. Venous reflux in the popliteal vein, deep venous system. Perforators without reflux. Electronically signed by: Nithin Harris MD 05/07/2025 10:38 AM [facility]
--- OUTSIDE RECORDS SUMMARY | 2025-05-07 08:35 | XMS_ITS | Encounter Summary ---
Author Organization [facility] Address [address] [place] [phone] Phone Care Team Providers Care Burner Machine Operator Name Role Phone Dave Park MD Primary Care Provider + Encounter Details Date Type Department Care Team (Late st Contact Info) Description 03/14/2020 Procedure Pass [facility] [address] [place] [address] Social History Tobacco Use Types Packs/Day Years [...] on filedocumented in this encounter Care Teams Burner Machine Operator Relationship Specialty Start Date End Date Dave Park MD [address] [place] [id number] PCP - General Family Medicine 10/31/18 documented as of this encounter Additional Source Comments The information contained in this document represents components of the legal health record. It is not the complete legal health record.[facility]
--- OUTSIDE RECORDS SUMMARY | 2025-05-07 08:36 | XMS_ITS | Clinical Summary ---
Author Organization [facility] Address [address] [place] [address] Care Team Providers Care Key Filer Name Role Phone Dave Park MD Primary Care Provider [phone] Allergies Active Allergy Reactions Criticality Noted Date [...] age to complete this topic Care Teams Key Filer Relationship Specialty Start Date End Date Dave Park MD [address] [place] [address] PCP - General Family Medicine 10/07/18
--- OUTSIDE RECORDS SUMMARY | 2025-05-07 08:36 | XMS_ITS | Data Portability ---
Author Organization [place] [facility] Laura Schulte AONE Nicholson Address [address] [place] [address] Care Team Providers Care Plant Director Name Role Phone CHEPE THAPA Primary Care [...] 2 or more view 023 09/18/19 23 [facility], [address], [address], [place], [address], 14:44:17 Medication Orders None record ed. Patient TargetsNo targets recorded. Patient Instructions Encounter Date Encounter Id Patient Instructions Last Modified By Organization Details Last Modified Time 09/17/2022 [id number] views of the right shoulder were obtained on 09/17/2022 in the [place] office. Glenohumeral joint spaces well-maintained. Acromiohumeral interval [...] Address Organization Details Recorded Time hysterectomy completed [facility], 04/05/2025 12:06:34 procedure on intestine completed [facility], 04/05/2025 12:06:54 total thyroidectomy completed [facility], 04/05/2025 12:07:04 repair of musculotendinous cuff of shoulder completed [facility], 04/05/2025 12:07:15 Imaging Results None recorded. Procedure Notes None recorded. Medical Equipment None Reported. Allergies Allergen ID Allergen Name Allergen Category Reaction Reaction Severity Criticality Documentation Date Start Date Code Code System Note Provider Name and Address Organization Details Recorded Time 608637 pineapple allergeni c extract food,medi cation Not available Not available Not available 03/16/20252019 19592 5 RxNorm Not Available Pending sale to [facility] 5 01:31:09 875168 Prunus armeniaca seed extract medicatio n Not available Not available Not available 03/16/20252010 27091 58 RxNorm React ion: Other (See Comme nts), sever ity: Unkno wn;TH ROAT TIGHT AND DRY Not Available Pending sale to [facility] 5 01:31:09 943 tramadol medicatio n Not available Not available Not available 09/17/2022 70078 [facility] 14:19:48 Medications Name Sig Start Date [...] Updated DateTime 09/17/2022 162.56 cm 23.9 kg/m2 75809.34 g Danielle Perdue [place] [facility] 09/17/2022 14:20:25 Date Recorded Body height Body mass index (BMI) Body weight Provider Name and Address Organization Details Last Updated DateTime 04/05/2025 160.02 cm 26.6 kg/m2 63018.86 g [facility] 04/05/2025 12:05:03 Social History Question Answer Notes LastModified by Organizat ion Details LastModified Time Tobacco Smoking Status Former Smoker Not Available [facility] 03/15/2025 23:40:42 How Much Tobacco Do You Smoke? No [email or web address] Information not available 04/05/2025 Sex: Unknown Functional Status Question Answer Note LastModified by Organizat ion Details LastModified Time Do you use any illicit or recreational drugs? No [email or web address] Information not available 04/05/2025 What is your level of alcohol consumption? None Information not available 04/05/2025 Mental Status None recorded. Family History Relationship Description Onset Age of this Age Resolved Age Notes LastModified by Organization Details LastModified Time Mother Heart disease [email or web address] Not available 03/24 12:05:25 Mother Hypercholest erolemia [email or web address] Not available 03/24 12:05:38 Mother Hypertensive disorder [email or web address] Not available 03/24 12:05:53 Sister Heart disease [email or web address] Not available 03/24 12:05:25 Sister Hypertensive disorder [email or web address] Not available 03/24 12:05:53 Medical History Condition [...] Anemia N Brain Injury N Heart Attack ([place]) N Osteopenia Y Diabetes N Bleeding Disorder [...] Codes Diagnosis Note [id number] MD SARA Antony [address] [address] 09/17/2022 14:09:08 09/17/2022 14:38:42 Pain of right shoulder joint [id number] 8893034 M25.511 Tendinitis of long head of biceps brachii of right shoulder 533012147 M75.21 Health Concerns Section Related Observation LastModified by Organization Detai ls LastModified Time None Recorded Concern Status LastModified by Organization Details LastModified Time None Recorded Advance Directives Directive None Recorded Payers Insurance Date Sequence Insurance Name Policy Number Policy Abraham Covered Member ID Abraham Member ID Guarantor Name 09/17/2022 1 [place]: [facility] [place] [place] [id number] Serene Winchester [id number] Herron Notes Date Note Type [...] of pain. She was subsequently seen at [facility] by Dr. Doherty in August 2020. She [...] the bicipital region. 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 She describes herself as healthy. She quit smoking in 1980. Jimmy Houston MD [address] [place] [address], [phone], [place] [facility] 09/17/2022 15:03:31 OBGyn Episode No OBEpisode recorded.
--- OUTSIDE RECORDS SUMMARY | 2025-05-07 08:36 | XMS_ITS | Clinical Summary ---
Author Organization [facility] Address [address] [place] [phone] Phone Care Team Providers Care Tow Truck Driver Name Role Phone Dave Park MD [...] patient's age to complete this topic IPV VACCINES Aged Out No longer eligi ble based on patient's age to complete this topic MENINGOCOCCAL VACCINES (ACWY) Aged Out No longer eligible based on patient's age to complete this topic MENINGOCOCCAL VACCINES (B) Aged Out N o longer eligible based on patient's age to complete this topic Medical Devices Not on file Insurance [facility] [place] [address] [place] [address] Care Teams Tow Truck Driver Relationship Specialty Start Date End Date Dave Park MD [address] [place] [id number] PCP - General Family Medicine 10/31/18 Additional Source Comments The information contained in this document represents components of the legal health record. It is not the complete legal health record.[facility]
--- OUTSIDE RECORDS SUMMARY | 2025-05-07 08:36 | XMS_ITS | Clinical Summary ---
Author Organization [facility] [address] [facility] Address [address] [place] [address] Phone Care Team Providers Care Networking Specialist Name Role Phone Dave Pakr MD Primary Care Provider [phone] Surgical History Surgery Date Site/Laterality Comments HIP [...] patient's age to complete this topic Insurance [facility] Care Teams Networking Specialist Relationship Specialty Start Date End Date Dave Park MD [facility] [address] [place] [address] PCP - General Family Medicine 10/07/18
--- OUTSIDE RECORDS SUMMARY | 2025-05-07 08:36 | XMS_ITS | Patient Health Record ---
Author Organization [facility] Address [address] [address] Care Team Providers Care Ekg Manager Name Role Phone CHEPE THAPA MD Primary Care Provider Lizette Pelaez Unavailable [phone] Allergies Allergen (clinical drug ingredient) Drug/Non Drug Allergy documented on EMR Reaction Allergy Type Onset Date Status simvastatin ZOCOR Myalgia Drug Allergy Activ e Substance with 4-wlblvyn-3-methylgluta ryl-coenzyme A reductase inhibitor mechanism of action [...] Status W/U Status Risk Notes Problem Epilepsy (32744348) Unspecified epilepsy (345.9) Active confirmed Problem Infective arthritis (disorder) (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) Unspecified infective arthritis, site unspecified (711.90) Active confirmed Problem Uterine prolapse without vaginal wall prolapse (54381250) Uterine prolapse without mention of vaginal wall prolapse (618.1) Active confirmed Problem Postmenopausal atrophic vaginitis (80240316) Postmenopausal atrophic vaginitis (N95.2) Active confirmed Problem Family history of malignant neoplasm of breast (703569157) Family history of malignant neoplasm of breast (Z80.3) Active confirmed Problem Migraine (disorder) (70273002) Migraine, unspecified without mention of intractable migraine without mention of status migrainosus (346.90) Active confirmed Diag Problem Menopausal symptom (78192642) Symptomatic menopausal or female climacteric states (627.2) Active confirmed Major Problem Postmenopausal atrophic vaginitis (80630185) Postmenopausal atrophic vaginitis (627.3) Active confirmed Diag Problem Joint pain (45448374) Pain in joint, site unspecified (719.40) Active confirmed Diag Problem Muscle pain (26818374) Unspecified myalgia and myositis (729.1) Active confirmed Diag Vital Signs Temperature 97.2 degrees Fahrenheit 06/30/2024 Blood pressure diastolic 78 mm Hg 06/30/2024 Height 62.5 in 06/30/2024 Blood pressure systolic 118 mm Hg 06/30/2024 Weight 140 lbs 06/30/2024 BMI 25.2 kg/m2 06/30/2024 Encounters Encounter Location Date Provider Diagnosis [facility] [address] [place] [address] 06/30/2024 Lizette Arroyo Encounter for gynecological examination [...] Name:Lizette Barraza tusharabdi, 07/02/2025 10:20:00 AM, [address], [address], [place], [address], Insurance Providers Payer Name Payer Address Payer Phone Subscriber Number Group Number Insured Name Patient Relationship to Insured Coverage Start Date Coverage End Date [employer] [place] [address] [place] [address] [phone] [id number] [place] PRUITT Spouse - patient is the [...] Bilateral Hip Surgery Colonoscopy Right Hand Sugery Arrington Teeth Extraction RT & LT Vericose Veins Lasered Hospitalization History Reason Date(Month/Year) See Surgical Hx
== END 2025-05-07 08:24 | disposition home or self-care (01) ==
LOC: HO.US 08:23
PROVIDERS: PCP Family Medicine; Visit Provider Surgery Vascular Surgery
DX: I83.11 Varicose veins of right lower extremity with inflammation (principal)
CPT/HCPCS: 93970

== ENCOUNTER → 2025-05-07 08:23 | Outpatient (BNV) | payer BC, SELFPAY | PROVIDERS: PCP Family Medicine; Visit Provider Radiology Diagnostic Radiology | DX: I83.11 Varicose veins of right lower extremity with inflammation (principal) | CPT/HCPCS: 93970 ==

== ENCOUNTER 2025-06-03 11:15 | Outpatient (AMB) | payer BC, SELFPAY ==
--- NOTE | 2025-06-03 11:17 | MHC.OFFVIS ---
Vital Signs 06/03/25 11:18 Height 5 ft 4 in Weight 145 lb BMI 24.9 Intake Visit Reasons: follow up 05/07/25 Intake Note: follow up 05/07/25, Hx of multiple venous procedures. Pt states she still has VV on Right LE w/ weakness and restless legs. Manager Financial Reporting Required: No Accompanied by: Self / Same As Patient Allergies casein (CASEIN) Allergy (Unknown, Verified 06/03/25 11:21) NAUSEA & VOMITING lactose (LACTOSE) Allergy (Unknown, Verified 06/03/25 11:21) NAUSEA & VOMITING simvastatin (SIMVASTATIN) Allergy (Unknown, Verified 06/03/25 11:21) JOINT PAIN pineapple Adverse Reaction (Intermediate, Verified 06/03/25 11:21) Rash strawberry Adverse Reaction (Intermediate, Verified 06/03/25 11:21) Rash walnut Adverse Reaction (Intermediate, Verified 06/03/25 11:21) Swelling HPI HPI follow up [facility] 05/07/25: Details: The patient is a 65 year old female presenting for a follow-up visit regarding venous insufficiency. She has a history of a venous procedure performed in 2016. Her symptoms included bulging veins that flared up during the summer with increased activity and time on her feet. She reports having had foam sclerotherapy twice in the past, which she describes as a brutal experience. She currently has large cluster of varicosities in the right medial thigh which have been a source of pain and discomfort for her. She does report use of compression stockings with minimal relief. Additionally, the patient was recently diagnosed with three bulging discs in her lumbar spine and spondylolisthesis following an MRI. This was investigated because she was experiencing leg numbness, which has since been improving. [facility] Medical History Hyperlipidemia Social History Patient Tobacco Use Status: Tobacco use Unknown Review of Systems Const Reports as per HPI ENT Reports no additional complaints Card Denies chest pain, Denies chest pain at rest and Denies chest pain with activity Resp Denies chest congestion and Denies cough GI Reports no additional complaints Musc Details: pain over varicosities, aching of lower extremities, swelling, cramping, heaviness and tiredness, itching Denies abnormal gait Skin/Breast Reports pruritus and Denies wounds Neuro Reports no additional complaints and Denies abnormal gait Psych Denies no additional complaints Physical Exam Vital Signs: BMI result Body Mass Index 24.9 Const General: cooperative, healthy appearing and comfortable Orientation/consciousness: oriented to person, oriented to place and oriented to time Neck Carotids: no bruits Chest Chest palpation & inspection: normal inspection of the chest and normal palpation of entire chest wall Resp Effort & Inspection: normal respiratory effort and able to speak in complete sentences Cardio Rate: regular rate Heart sounds: S1 normal heart sound present and S2 normal heart sound present Peripheral pulses: Peripheral pulses 2+ throughout GI Inspection: Yes normal to inspection Skin Other: +2 edema, large rope-like varicosities greater than 4 mm right medial calf and thigh CEAP Classification C4 - skin color changes Ep - Etiology Primary As - superficial veins P - reflux General skin exam: dry skin Neuro General: oriented to person, oriented to place and oriented to time Extrem Right lower extremity: full ROM, normal capillary refill and edema Left lower extremity: full ROM, normal capillary refill and edema Psych Mental Status: mental status grossly normal Results Reviewed Results Reviewed: Brief summary of venous insufficiency testing is as follows: right great saphenous vein: negative right small saphenous vein: negative right accessory vein: none present left great saphenous vein: negative left small saphenous vein: negative left accessory vein: none present Please note there is no evidence of any venous aneurysms or significant tortuosity Assessment & Plan Assessment & Plan (1) Varicose veins of right lower extremity with inflammation: Code(s): I83.11 - Varicose veins of right lower extremity with inflammation Category: Medical Plan: This patient has varicose veins with inflammation. They continue to be a source of discomfort for the patient. The patient has tried conservative treatment with compression, leg elevation and exercise program for over 3 months time. They have been compliant with all treatment. This has provided minimal relief for the patient. I do not anticipate this course of treatment will alter the underlying etiology. The patient has been scheduled for lower extremity venous treatment inclusive of --- right leg microphlebectomy. Risks, benefits, and complications of this procedure has been discussed in detail with the patient including but not limited to bleeding, infection, and the development of a DVT. The patient has demonstrated a clear understanding and has consented. We will schedule the patient as soon as possible. Thank you for allowing us to participate in this patient's care. If there are any questions or concerns please do not hesitate to contact us. Coding Level of Care Code Est Pt Level 4 (74967) Diagnoses Varicose veins of right lower extremity with inflammation I83.11
[2025-06-03 11:18] VITALS: BMI 24.9
== END 2025-06-03 11:48 | disposition home or self-care (01) ==
LOC: HO.HVS 11:16
PROVIDERS: PCP Family Medicine; Visit Provider Surgery Vascular Surgery
DX: I83.11 Varicose veins of right lower extremity with inflammation (principal)
CPT/HCPCS: 99214